=== PATIENT | female | born 1980 | race Caucasian/White ===

== ENCOUNTER → 2018-04-02 10:40 | Outpatient (CLI) | payer OTHER, SELFPAY ==
[2018-04-07 10:27] LABS: HPV APTIMA, High Risk Negative (Negative)
== END ==
PROVIDERS: Family Provider Family Medicine; PCP Family Medicine; Visit Provider Nurse Practitioner Women's Health
DX: Z12.4 Encounter for screening for malignant neoplasm of cervix (principal)
CPT/HCPCS: 88175; G0145

== ENCOUNTER → 2018-05-20 13:49 | Outpatient (CLI) | payer OTHER, SELFPAY | LOC: US 13:51 | PROVIDERS: Visit Provider Nurse Practitioner Women's Health | DX: N92.0 Excessive and frequent menstruation with regular cycle (principal); R10.2 Pelvic and perineal pain | CPT/HCPCS: 76830; 76856; 93976 ==

== ENCOUNTER 2018-09-17 09:40 | Day surgery (SDC) | payer OTHER, SELFPAY ==
[2018-09-07 10:27] VITALS: BMI 48.0
[2018-09-14 10:23] LABS: Hematocrit 39.6 % (37-47); Hemoglobin 13.4 g/dl (12.0-15.0); Mean Corp Hgb Conc 33.8 g/gl (32-36); Mean Corpuscular Hgb 30.4 pg (27.0-32.0); Mean Corpuscular Volume 89.8 fL (81-99); Mean Platelet Vol. 9.7 fl (6.2-12.0); Platelet Count 194 K/mm3 (150-450); RBC Distribution Width SD 42.1 fl (35.1-43.9); Red Blood Count 4.41 M/mm3 (4.2-5.4); White Blood Count 5.8 K/mm3 (4.4-11.0)
[2018-09-14 10:24] LABS: Scan Indicated on CBC? Y/N NO
[2018-09-17] VITALS (11 sets, daily range): BP systolic 87–126; BP diastolic 53–81; PULSE 46–80; RESP 14–20; TEMP 36.2–37; O2SAT 93–100; BMI 38.5
[2018-09-17] MEDS: Lactated Ringers 1,000 ML 40 ML IV (07:00)
[2018-09-17 10:16] LABS: Internal QC Validated? YES +Cl - CLEAR BKGD; Pregnancy, Urine Negative Negative
[2018-09-17] MEDS: Enoxaparin 40 MG/0.4 ML Syringe SC (10:44)
[2018-09-17] MEDS: Scopolamine 1mg/72hr Patch 1 PATCH TRANSDERM. (10:45)
[2018-09-17] MEDS: Phenazopyridine 95 MG Tablet 190 MG PO (10:49)
[2018-09-17] MEDS: Celecoxib 200 MG Capsule 400 MG PO (10:49)
[2018-09-17] MEDS: Acetaminophen 500 MG Tablet 1000 MG PO ×3 (10:50→22:13)
[2018-09-17] MEDS: Gabapentin 600 MG Tablet PO (10:50)
--- NOTE | 2018-09-17 11:50 | HYST_PTH ---
PATIENT: STEPHANIE FERNANDEZ LOC: [facility] – [place] U#:[id number] AGE/SX: 38/F ROOM: RE09/17/[address]: Dr. Juliana Yang MD : 1980 BED: DIS: 09/18/2018 SPEC #: [id number] RECD: 09/17/18 15:51 STATUS: FORTUNATO MANNY #: [id number] REMA: 09/17/18 11:[address]: Juliana Yang DEPT: SURGICAL PATHOLOGY RECD BY: Alex Holden ENTERED: 09/18/18 10:14 SP TYPE: HYSTERECT OTHR DR: Dr. Puma Billy DO Tissues: Uterus, NOS Procedures: Surgery Specimen Level V HEADER OPERATION: ERAS-hysterectomy, vaginal, total, bilateral salpingectomy PRE-OP DIAGNOSIS: Abnormal uterine bleeding TISSUE SUBMITTED: Uterus, cervix, bilateral fallopian tubes MICROSCOPIC DIAGNOSIS Uterus, cervix, bilateral fallopian tubes, vaginal hysterectomy and bilateral salpingectomy: Cervix - no pathologic diagnosis. Endometrium - proliferative endometrium. Myometrium - intramural and subserosal leiomyomas (largest measuring 1.5 cm in greatest dimension). Bilateral fallopian tubes - no pathologic diagnosis. SCOTT:gilmer 09/21/18 MICROSCOPIC DESCRIPTION Slides are reviewed. GROSS DESCRIPTION Received in fixative is one container labeled with the patient's name and designated uterus, cervix and bilateral fallopian tubes. The specimen consists of a hysterectomy specimen consisting of uterus with cervix and attached bilateral fallopian tubes measuring 10 x 5 x 4 cm and weighing 90 gm. The serosal surface shows small, sanches nodular masses. The ectocervical mucosa is unremarkable. The external os is oval in contour. The endocervical canal measures 3.5 cm in length and the endocervical mucosa is sanches, glistening and unremarkable. The triangular endometrial cavity measures 5 cm in length and up to 2 cm in width. The endometrium is sanches, glistening without any mass lesion and measures up to 0.2 cm in thickness. Sections through the uterine wall reveal multiple intramural and subserosal nodular masses, the largest mass measuring 1.5 cm in greatest dimension. Sections of these masses reveal sanches whorled cut surfaces without areas of hemorrhage, necrosis or cystic degeneration. The uninvolved uterine wall measures 2 cm in thickness. Also received are detached bilateral fallopian tubes (not identified as right or left) each measuring 4.5 cm in length and 0.6 cm in diameter. The fimbrial ends are identified. Sections reveal unremarkable cut surfaces. Cloth Spreader sections are submitted in ten cassettes as follows: 1 - anterior cervix, 2 - posterior cervix, 3 & 4 - anterior uterine wall, 5 & 6 - posterior uterine wall, 7 & 8 - intramural and subserosal nodular masses, 9 & 10 - bilateral fallopian tubes with each cassette containing one fallopian tube. / SCOTT:gilmer 09/18/18 TC:1 CPT: 97024
[2018-09-17] MEDS: Lidocaine/D5W 2,000 MG/250 ML IV.SOLN 2000 MG (12:07)
--- NOTE | 2018-09-17 12:32 | PCM.OPRPT ---
Problem List (1) Abnormal uterine bleeding Status: Acute Comment: plan TVH BS. ERAS protocol Report of Operation Date of Procedure: 09/17/18 Pre-Operative Diagnosis: aub Post-Operative Diagnosis: same Surgery/Procedure Performed:: tvh bs Description of Surgical Findings:: nl uterus tubes, right ovary simple cyst senior python developer: Anayeli Dennis Type of Anesthesia:: General Special Medications: none Specimen's removed: uterus tubes Drains: garcia Estimated Blood Loss (mL): 125 Fluids Replaced: crystalloid Description of Procedure: Patient was taken to the operating room and was placed under general anesthesia was prepped and draped in normal sterile fashion in the dorsal lithotomy position. Preoperative antibiotics and SCDs and Garcia catheter was placed inside the bladder. Weighted speculum was placed in the vagina and the anterior and posterior lip of the cervix was grasped with 2 Satya clamps and circumferentially injected with dilute vasopressin. A circumferential incision was made with a scalpel and the posterior cul-de-sac was entered into sharply and a longneck speculum was placed. The anterior cul-de-sac was also dissected down and entered into sharply and the uterosacral ligaments were clamped cut and suture ligated bilaterally followed by the cardinal ligaments which were Clamped cut and suture ligated bilaterally with 0 Monocryl. The uterus serially descended and progressive bites were taken bilaterally up to the level of the utero-ovarian ligament bilaterally which was clamped transected and double ligated with 0 Monocryl suture and 0 Vicryl free tie. Bilateral fallopian tubes and ovaries were well visualized and noted be within normal limits and the bilateral fallopian tubes were transected across the base with a Nasrin clamp and removed and sutured with 0 Vicryl suture. Excellent hemostasis was noted. Posterior peritoneum was reapproximated with 2-0 Vicryl and a modified Kimball stitch was placed through the posterior vaginal cuff and bilateral uterosacral ligaments across the posterior cul-de-sac skimming along to provide apical support to the vagina. The vagina was closed with [id number] 0 Vicryl pop offs including the posterior and anterior peritoneum in the reapproximation. Excellent hemostasis was noted. All instruments removed from the vagina clear urine was noted at the end of the procedure and patient was awoken and taken recovery in stable condition. Grafts/Implants Used: none - Complications none - Admit VTE Documentation VTE Present on Admission: No VTE Mechan Device Prophylaxis: SCD's
--- NOTE | 2018-09-17 12:34 | DCINST_ITS ---
Discharge Diet: No Restrictions Discharge Activity: Return to Normal Activity, May Not Drive, May Shower May resume sexual activity in: 6-8 weeks Call your doctor if your incision/area has: Continuous Slow Oozing, Sudden Increased Bleeding, Increased Pain/ Swelling, Increased Redness, Foul Smelling Discharge Call your doctor if you observe: Fever of 101 or Higher, Inability to urinate, Inability to have a bowel movement, Using more than one pad per hour Allergies/Adverse Reactions: Allergies Latex, Natural Rubber Allergy (Verified 09/17/18 10:25) Unknown Penicillins [PCN] Allergy (Verified 09/17/18 10:25) Unknown Medications to take at Discharge NK 05/18/18 Primary Care Physician: Puma Billy DO [Primary Care Provider] - Test Results: Test results from this visit will be discussed in further detail at your follow- up appointment, if applicable. Please Follow Up With: Juliana Yang MD - [phone]
[2018-09-17] MEDS: Vasopressin 20 UNITS/ML Vial (12:44)
[2018-09-17 13:16] LABS: Bedside Glucose 95 mg/dL (70-110)
[2018-09-17] MEDS: Ondansetron 4 MG/2 ML Vial IV (13:42)
[2018-09-17] MEDS: Lidocaine/D5W 2,000 MG/250 ML IV.SOLN 34.564 MG IV (13:42)
[2018-09-17] MEDS: Ketorolac 30 MG/ML Syringe IV ×2 (15:17→20:08)
[2018-09-17] MEDS: Lactated Ringers 1,000 ML 125 ML IV (20:08)
[2018-09-17] MEDS: 0.9% NaCl Peripheral Flush Adult/Peds IV (20:08)
[2018-09-17 20:32] LABS: Hemoglobin 12.1 g/dl (12.0-15.0)
[2018-09-17] MEDS: Docusate Sodium 100 MG Capsule PO (22:13)
[2018-09-18 02:09] VITALS: BP 118/68; PULSE 77; RESP 14; TEMP 37; O2SAT 96
[2018-09-18] MEDS: Ketorolac 30 MG/ML Syringe IV (02:26)
--- NOTE | 2018-09-18 02:30 | NUR.TO.PHY ---
@ 0200 assessment it was noted that the catheter had minimal urine output. The catheter was observed to be disconnected as the red tape was not in place. Bed change and catheter re attached. Will monitor.
[2018-09-18] MEDS: Acetaminophen 500 MG Tablet 1000 MG PO (05:25)
[2018-09-18] MEDS: Lactated Ringers 1,000 ML 125 ML IV (05:26)
[2018-09-18 06:21] LABS: Hematocrit 35.6 % (37-47); Hemoglobin 11.9 g/dl (12.0-15.0); Mean Corp Hgb Conc 33.4 g/gl (32-36); Mean Corpuscular Hgb 29.9 pg (27.0-32.0); Mean Corpuscular Volume 89.4 fL (81-99); Mean Platelet Vol. 9.1 fl (6.2-12.0); Platelet Count 166 K/mm3 (150-450); RBC Distribution Width CV 12.9 % (11.6-14.6); RBC Distribution Width SD 41.6 fl (35.1-43.9); Red Blood Count 3.98 M/mm3 (4.2-5.4); White Blood Count 9.9 K/mm3 (4.4-11.0)
[2018-09-18 06:25] LABS: Scan Indicated on CBC? Y/N NO
[2018-09-18 07:45] VITALS: O2SAT 95
[2018-09-18 07:54] VITALS: BP 111/64; PULSE 65; RESP 16; TEMP 36.9; O2SAT 95
--- NOTE | 2018-09-18 07:58 | PCM.PN.OB ---
Subjective: Doing well. Not ambulatory yet. Slept well. Plans home later today. Pain controlled - Physical Exam General: Alert, Oriented x3 Abdomen: Soft, Non-Distended, - Vital Signs Temp Pulse Resp BP Pulse Ox 98.5 F 65 16 111/64 95 09/18/18 07:54 09/18/18 07:54 09/18/18 07:54 09/18/18 07:54 09/18/18 07:54 Oxygen Flow Rate (L/min) 6 Oxygen Delivery Method Room Air Weight: 253 lb 8 oz Body Mass Index (BMI) 38.5 Intake and Output for Last 24 Hours 09/16/18 09/17/18 09/18/18 23:59 23:59 23:59 Intake Total 2700 / 2700 994 / 994 Output Total 655 / 655 250 / 250 Balance 2045 / 2045 744 / 744 Laboratory Tests Past 24 Hrs 09/17/18 09/17/18 09/18/18 09:50 20:20 05:52 WBC 9.9 RBC 3.98 L Hgb 12.1 11.9 L Hct 35.6 L MCV 89.4 MCH 29.9 MCHC 33.4 RDW 12.9 RDW Differential 41.6 Plt Count 166 MPV 9.1 Urine Test Negative POC Glucose 09/17/18 10:39 POC Glucose 95 Medical Necessity - Tobacco Use Smoking Status: Never smoker Assessment/Plan All Active Problems (Last Reviewed 09/07/18 @ 10:29 by Yesi Marroquin) Abnormal uterine bleeding (Acute) [facility] BS POD#1: Routine care. NO SOB, CP. Home today
--- OUTSIDE RECORDS SUMMARY | 2018-11-03 03:26 | XMS RPT_ITS ---
:1980 Author Organization [place] Support Name Relationship Address Phone ERIC FERNANDEZ Unavailable [address] [facility] [address] + [place] [address] MINDYS DINER Unavailable [address] + [place] [address] ERIC FERNANDEZ Unavailable [address] + [place] [address] MINDYS DINER Unavailable [address] + [place] [address] ERIC FERNANDEZ Unavailable [address] [facility] [address] + [place] [address] MINDYS DINER Unavailable [address] + [place] [address] ERIC FERNANDEZ Unavailable [address] [facility] [address] + [place] [address] MINDYS DINER Unavailable [address] + [place] [address] ERIC FERNANDEZ Unavailable [address] + [place] [address] MINDYS DINER Unavailable [address] + [place] [address] ERIC FERNANDEZ Unavailable [address] + [place] [address] MINDYS DINER Unavailable [address] + [place] [address] ERIC FERNANDEZ Unavailable [address] + [place] [address] MINDYS DINER Unavailable [address] + [place] [address] ERIC FERNANDEZ Unavailable [address] [facility] [address] + [place] [address] MINDYS DINER Unavailable [address] + [place] [address] ERIC FERNANDEZ Unavailable [address] [facility] [address] + [place] [address] MINDYS DINER Unavailable [address] + [place] [address] ERIC FERNANDEZ Unavailable [address] [facility] + [place] [address] MINDYS DINER Unavailable [address] + [place] [address] ICEERIC Unavailable [address] [facility] + [place] [address] MINDYS DINER Unavailable [address] + [place] [address] Care Team Providers Name Role Phone Jennifer Gray Attending Unavailable Marcanthony, Juliana Referring Unavailable Wenceslao, Puma Primary Care Unavailable Marcanthony, Juliana Consulting Unavailable Marcanthony, Juliana Attending Unavailable Wenceslao, Puma Referring Unavailable Marcanthony, Juliana Attending Unavailable [place], Jennifer Attending Unavailable Elderbrock, Roberto Carlos Referring Unavailable Elderbrock, Roberto Carlos Primary Care Unavailable Isaac, Jennifer Attending Unavailable Isaac, Jennifer Referring Unavailable Elderbrock, Roberto Carlos Primary Care Unavailable Isaac, Jennifer Attending Unavailable Elder[place], Roberto Carlos Referring Unavailable Elderbrock, Roberto Carlos Primary Care Unavailable Iasac, Jennifer Attending Unavailable Primay Care Physicia, No Primary Care Unavailable [place], Jennifer Referring Unavailable Marcanthony, Juliana Attending Unavailable Primay Care Physicia, No Referring Unavailable [place], Jennifer Attending Unavailable Primay Care Physicia, No Referring Unavailable Marcanthony, Juliana Attending Unavailable Marcanthony, Juliana Referring Unavailable Wecneslao, Puma Primary Care Unavailable Marcanthony, Juliana Attending Unavailable Primay Care Physicia, No Referring Unavailable PROBLEMS PROBLEMS DATE TYPE CONDITION / CODE ATTENDING STATUS SOURCE 10/16/2018 Unknown N93.9 - Abnormal Marcanthony, Active [place] uterine and vaginal [facility] bleeding, Hospital unspecified / Repository N93.9(ICD-10) 10/16/2018 Unknown D25.1 - Intramural Marcanthony, Active [place] leiomyoma of uterus [facility] / D25.1(ICD-10) Hospital Repository 10/16/2018 Unknown D25.2 - Subserosal Marcanthony, Active [place] leiomyoma of uterus [facility] / D25.2(ICD-10) Hospital Repository 10/16/2018 Unknown N83.201 - Marcanthony, Active [place] Unspecified ovarian [facility] cyst, right side / Hospital N83.201(ICD-10) Repository 09/18/2018 Unknown G89.18 - Other acute Marcanthony, Active [place] postprocedural pain [facility] / G89.18(ICD-10) Hospital Repository 05/18/2018 Unknown N92.0 - Excessive [place], Jennifer Active [place] and frequent Community menstruation with Hospital regular cycle / Repository N92.0(ICD-10) 05/18/2018 Unknown R10.2 - Pelvic and [place], Jennifer Active [place] perineal pain / Community R10.2(ICD-10) Hospital Repository 04/02/2018 Unknown Z12.4 - Encounter IsaacJennifer bernabe Active [place] for screening for [facility] malignant neoplasm Hospital of cervix / Repository Z12.4(ICD-10) 04/02/2018 Unknown Z01.419 - Encounter Buena VistaJennifer bernabe Active [place] for gynecological [facility] examination Hospital (general) (routine) Repository without abnormal findings / Z01.419(ICD-10) 04/02/2018 Unknown Z12.31 - Encounter Jennifer Gray Active [place] for screening [facility] mammogram for Hospital malignant neoplasm Repository of breast / Z12.31(ICD-10) PROCEDURES PROCEDURES No Procedure Records FoundRESULTS RESULTS [employer]SEMBLER OFFICE VISIT Observed: 10/12/2018 Status: F Source: CARLOS REPORT 1:38 PM [facility] REPOSITORY [facility] [address] [place] [address]. [address] [place] [address] OFFICE VISIT Date of Service: 04/02/18 MR#: [id number] Acct: [id number] Name: REBECCASTEPHANIE Rep #: [id number] : 1980 Provider: AYLEEN Gray Age/Sex: 38/F [place] [facility] Status: Signed with Addenda ADDENDUM by AYLEEN Gray on 10/12/18 at 1338 Addendum entered and electronically signed by SENDY Bang 10/12/18 13:38: Rectal exam was deferred. No masses palpated Assessment AND Plan Problems 1. Encounter for gynecological examination without abnormal finding Z01.419 2. Encounter for screening mammogram for malignant neoplasm of breast Z12.31 3. Pap smear for cervical cancer screening Z12.4 Plan - SENDY Bang Completed breast and pelvic exam Reviewed diet and exercise Pap thin prep pap with HPV Mammogram ordered Contraception none RTO 1 year, prn with problems Jennifer Gray GRAIN FARMWORKER Orders Orders: 10/12/18 1338 <Electronically signed by Jennifer KABA> Date Jennifer Gray cc: * Signed Intake Vital Signs04/02/18 Height 5 ft 8 in 04/02/18 Weight: 249 lb 04/02/18 Body Mass Index (BMI) 37.8 04/02/18 Blood Pressure 126/70 Intake Visit Reasons: [facility] annual Accompanied by: self Is patient in pain?: No Allergies Latex, Natural Rubber Allergy (Verified 04/02/18 10:22) Unknown Penicillins [PCN] Allergy (Verified 04/02/18 10:22) Unknown Is last menstrual period known: Yes Last Menstral Period: 03/16/18 Post menopausal: No Patient : No : No Nurse's Note: Patient here for annual exam. Previous patient of at [facility]. 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 infertility, declined evaluation Female Reproductive History Last Menstral Period: 03/16/18 Cycle Length: 21-35 Bleeding Duration: 5 Questions: Metorrhagia: No, Sexually active: Yes, Dyspareunia: No, PCB: No ROS Const Constitutional: Denies fatigue, weight gain or weight loss Cardio Card: Denies chest pain Resp Resp: Denies cough or shortness of breath with activity GI GI: Denies abdominal pain, constipation, change in stools, vomiting or bloating : Reports as per HPI; denies urinary frequency, pelvic pain, urinary urgency, vaginal discharge, vaginal itching, urinary incontinence or difficulty urinating Exam Const General: cooperative, healthy appearing, no acute distress, well developed Orientation: alert, oriented to person, oriented to place HENND Head: normal to inspection Neck Neck: normal visual inspection Thyroid: thyroid normal Lymphatic: no lymphadenopathy noted Chest Breast inspection: normal inspection of the breasts, normal inspection of the axillae Breast palpation: normal palpation of the breasts, normal palpation of the axillae, no axillary lymphadenopathy Resp Effort AND Inspection: normal respiratory effort GI Palpation: soft, nontender, no masses Rectal Exam: mass, deferred External Female Exam: normal external appearance, normal appearance of the urethra Urethra: normal appearance of the urethra, normal palpation Speculum Exam - Vagina: normal appearance of the vagina, normal vaginal discharge Speculum Exam - Cervix: normal appearance of the cervix, other (pap collected) Bimanual Exam- Vagina AND Uterus: normal bimanual exam, uterine size normal, uterine shape normal, uterus non-tender Bimanual Exam- Adnexa, other: normal adnexae, no adnexal masses, adnexae non-tender, pelvic support normal Pelvic Support: normal Neuro General: alert, oriented x3 Psych Affect: normal affect Assessment AND Plan Problems 1. Encounter for gynecological examination without abnormal finding Z01.419 2. Encounter for screening mammogram for malignant neoplasm of breast Z12.31 3. Pap smear for cervical cancer screening Z12.4 Plan Completed breast and pelvic exam Reviewed diet and exercise Pap thin prep pap with HPV Mammogram ordered Contraception none RTO 1 year, prn with problems Jennifer Gray GRAIN FARMWORKER Orders Orders: Coding Level of Care Code Off vis,new,prev 40-64yrs Diagnoses Encounter for gynecological examination without abnormal finding Z01.419 Gynecological examination findings: abnormal findings ABSENT Encounter for screening mammogram for malignant neoplasm of breast Z12.31 Pap smear for cervical cancer screening Z12.4 04/02/18 1051 <Electronically signed by Jennifer KABA> Date Jennifer ANGELESC Cosigner Signature: Date (if applicable) CC: [employer]BINE ASSEMBLER OFFICE VISIT Observed: 10/02/2018 Status: F Source: [place] REPORT 1:28 PM [facility] REPOSITORY [facility] [address] [place] [address]. [address] [place] [address] OFFICE VISIT Date of Service: 10/02/18 MR#: [id number] Acct: [id number] Name: STEPHANIE FERNANDEZ Rep #: [id number] : 1980 Provider: Juliana Yang MD Age/Sex: 38/F Location[place] [facility] [place] Status: Signed Intake Vital Signs10/02/18 Body Mass Index (BMI) 38.5 10/02/18 Weight: 255 lb 4 oz Intake Visit Reasons: 2 WEEK POST OP Chief Complaint: 2 wk post op hyst. Accompanied by: Self Is patient in pain?: No Allergies Latex, Natural Rubber Allergy (Verified 10/02/18 13:00) Unknown Penicillins [PCN] Allergy (Verified 10/02/18 13:00) Unknown Medications Naproxen [Naprosyn] 500 mg PO BID PRN PRN #60 tab 09/18/18 [Rx Confirmed 10/02/18] PFSH Medical History H/O: hysterectomy (Acute) No significant medical problems (Acute) Surgical History Hx of cholecystectomy (Inactive 2017) Social History adopted: No household members: spouse housing: house number of children: 0 current occupational status: employed current occupation: [employer]- [employer] pets and 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: Yes 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 Smoking Status: Never smoker second hand exposure: No alcohol intake: current alcohol intake frequency: holidays/special occasions only substance use type: does not use what type of physical activity do you participate in: walking seatbelt use: always do you feel safe at home: Yes HPI 2 WEEK POST OP: Details: STEPHANIE FERNANDEZ is a 38 year old who presents for postop visit Pregancy History 0 Elective abortions Hx Para Spontaneous abortions ROS Const Constitutional: Reports system reviewed and no additional complaints, except as docu GI GI: Denies abdominal pain, nausea, vomiting or cramping : Denies urinary frequency, vaginal dryness, vaginal discharge, urinary urgency, urinary incontinence, vaginal odor or pelvic pain Exam Const General: cooperative, healthy appearing, comfortable, no acute distress GI Inspection: normal to inspection Palpation: soft, nontender Assessment AND Plan Problems 1. Abnormal uterine bleeding N93.9 plan TVH BS. ERAS protocol Plan s/p tvh doing well Coding Level of Care Code No Charge Diagnoses Abnormal uterine bleeding N93.9 10/02/18 1328 <Electronically signed by Juliana Yang MD> Date Juliana Yang MD Cosigner Signature: Date (if applicable) CC: CBC-COMPLETE BLOOD CNT Collected: 09/18/2018 Status: F Source: CARLOS NO DIFF 5:52 AM [facility] REPOSITORY TYPE CODE TESTS RESULT OUT OF RANGE REFERENCE UNITS LAB L100.1000 4.4-11.0 K/mm3 Normal WBC 9.9 LAB L100.1200 4.2-5.4 M/mm3 Low RBC 3.98 LAB L100.1300 12.0-15.0 g/dl Low HGB 11.9 LAB L100.1400 37-47 % Low HCT 35.6 LAB L100.1500 81-99 fL Normal MCV 89.4 LAB L100.1600 27.0-32.0 pg Normal MCH 29.9 LAB L100.1700 32-36 g/gl Normal MCHC 33.4 LAB L100.1810 11.6-14.6 % Normal RDW CV 12.9 LAB L100.1820 35.1-43.9 fl Normal RDW SD 41.6 LAB L100.1900 150-450 K/mm3 Normal PLT 166 LAB L100.2000 6.2-12.0 fl Normal MPV 9.1 Performed By: #### L100.0500 #### [facility] [address] [place], [address] HEMOGLOBIN Collected: 09/17/2018 Status: F Source: [place] 8:20 PM [facility] REPOSITORY Order Comment: PATIENT WAS STILL IN SURGERY WHEN WENT TO DRAW. NURSE WAS TO CALL AND LET KNOW WHEN SHE RETURNED TO FLOOR. TYPE CODE TESTS RESULT OUT OF RANGE REFERENCE UNITS LAB L100.1300 12.0-15.0 g/dl Normal HGB 12.1 Performed By: #### L100.1300 #### [facility] [address] [place], [address] OPERATIVE REPORT Observed: 09/17/2018 Status: F Source: [place] 1:45 PM [facility] REPOSITORY [facility] Medical Records Department [address] [place] [address] Operative Report 09/17/18 1232 MR#: [id number] Acct: [id number] Name: STEPHANIE FERNANDEZ Rep #: [id number] : 1980 38 From: Juliana Yang MD PCP: Puam Billy MD Status: REG [facility] [place] [facility] List (1) Abnormal uterine bleeding Status: Acute Comment: plan TVH BS. ERAS protocol Report of Operation Date of Procedure: 09/17/18 Pre-Operative Diagnosis: aub Post-Operative Diagnosis: same Surgery/Procedure Performed:: tvh bs Description of Surgical Findings:: nl uterus tubes, right ovary simple cyst gluing crew leader: Anayeli Dennis Type of Anesthesia:: General Special Medications: none Specimen's removed: uterus tubes Drains: garcia Estimated Blood Loss (mL): 125 Fluids Replaced: crystalloid Description of Procedure: Patient was taken to the operating room and was placed under general anesthesia was prepped and draped in normal sterile fashion in the dorsal lithotomy position. Preoperative antibiotics and SCDs and Garcia catheter was placed inside the bladder. Weighted speculum was placed in the vagina and the anterior and posterior lip of the cervix was grasped with 2 Satya clamps and circumferentially injected with dilute vasopressin. A circumferential incision was made with a scalpel and the posterior cul-de-sac was entered into sharply and a longneck speculum was placed. The anterior cul-de-sac was also dissected down and entered into sharply and the uterosacral ligaments were clamped cut and suture ligated bilaterally followed by the cardinal ligaments which were Clamped cut and suture ligated bilaterally with 0 Monocryl. The uterus serially descended and progressive bites were taken bilaterally up to the level of the utero-ovarian ligament bilaterally which was clamped transected and double ligated with 0 Monocryl suture and 0 Vicryl free tie. Bilateral fallopian tubes and ovaries were well visualized and noted be within normal limits and the bilateral fallopian tubes were transected across the base with a Nasrin clamp and removed and sutured with 0 Vicryl suture. Excellent hemostasis was noted. Posterior peritoneum was reapproximated with 2-0 Vicryl and a modified Kimball stitch was placed through the posterior vaginal cuff and bilateral uterosacral ligaments across the posterior cul-de-sac skimming along to provide apical support to the vagina. The vagina was closed with [id number] 0 Vicryl pop offs including the posterior and anterior peritoneum in the reapproximation. Excellent hemostasis was noted. All instruments removed from the vagina clear urine was noted at the end of the procedure and patient was awoken and taken recovery in stable condition. Grafts/Implants Used: none - Complications none - Admit VTE Documentation VTE Present on Admission: No VTE Mechan Device Prophylaxis: SCD's 09/17/18 4956 <Electronically signed by Juliana Yang MD> Date Juliana Yang MD CC: Puma Billy MD; Juliana Yang MD Signed DISCHARGE INSTRUCTION Observed: 09/17/2018 Status: F Source: CARLOS 12:34 PM [facility] REPOSITORY [facility] Medical Records Department [address] [place] [address] Instructions for Home/Discharge Instructions 09/17/18 1234 MR#: [id number] Acct: [id number] Name: STEPHANIE FERNANDEZ Rep #: [id number] : 1980 38 From: Juliana Yang MD PCP: Puma Billy MD Status: REG [facility] [place] Discharge Diet: No Restrictions Discharge Activity: Return to Normal Activity, May Not Drive, May Shower May resume sexual activity in: 6-8 weeks Call your doctor if your incision/area has: Continuous Slow Oozing, Sudden Increased Bleeding, Increased Pain/ Swelling, Increased Redness, Foul Smelling Discharge Call your doctor if you observe: Fever of 101 or Higher, Inability to urinate, Inability to have a bowel movement, Using more than one pad per hour Allergies/Adverse Reactions: Allergies Latex, Natural Rubber Allergy (Verified 09/17/18 10:25) Unknown Penicillins [PCN] Allergy (Verified 09/17/18 10:25) Unknown Medications to take at Discharge NK 05/18/18 Primary Care Physician: Puma Billy DO [Primary Care Provider] - Test Results: Test results from this visit will be discussed in further detail at your follow-up appointment, if applicable. Please Follow Up With: Juliana Yang MD - [phone] 09/17/18 1234 <Electronically signed by Juliana Yang MD> Date Juliana Yang MD CC: Puma Billy MD HYSTERECTOMY SPECIMEN Observed: 09/17/2018 Status: F Source: CARLOS 11:50 AM [facility] REPOSITORY Patient: STEPHANIE FERNANDEZ : 1980 (38/F) Acct Num: [id number] Phys: Trey POWELL,Juliana Unit Num: [id number] Loc: [facility] Specimen: [id number] Received: 09/17/18 5560 Spec Type: HYSTERECT TISSUES 1 TISSUES: Uterus, NOS GROSS DESCRIPTION Received in fixative is one container labeled with the patient's name and designated uterus, cervix and bilateral fallopian tubes. The specimen consists of a hysterectomy specimen consisting of uterus with cervix and attached bilateral fallopian tubes measuring 10 x 5 x 4 cm and weighing 90 gm. The serosal surface shows small, sanches nodular masses. The ectocervical mucosa is unremarkable. The external os is oval in contour. The endocervical canal measures 3.5 cm in length and the endocervical mucosa is sanches, glistening and unremarkable. The triangular endometrial cavity measures 5 cm in length and up to 2 cm in width. The endometrium is sanches, glistening without any mass lesion and measures up to 0.2 cm in thickness. Sections through the uterine wall reveal multiple intramural and subserosal nodular masses, the largest mass measuring 1.5 cm in greatest dimension. Sections of these masses reveal sanches whorled cut surfaces without areas of hemorrhage, necrosis or cystic degeneration. The uninvolved uterine wall measures 2 cm in thickness. Also received are detached bilateral fallopian tubes (not identified as right or left ) each measuring 4.5 cm in length and 0.6 cm in diameter. The fimbrial ends are identified. Sections reveal unremarkable cut surfaces. Tube Knitter sections are submitted in ten cassettes as follows: 1 - anterior cervix, 2 - posterior cervix, 3 AND 4 - anterior uterine wall, 5 AND 6 - posterior uterine wall, 7 AND 8 - intramural and subserosal nodular masses, 9 AND 10 - bilateral fallopian tubes with each cassette containing one fallopian tube. / Mike 09/18/18 TC:1 CPT: 87439 HEADER OPERATION: ERAS-hysterectomy, vaginal, total, bilateral salpingectomy PRE-OP DIAGNOSIS: Abnormal uterine bleeding TISSUE SUBMITTED: Uterus, cervix, bilateral fallopian tubes MICROSCOPIC DESCRIPTION Slides are reviewed. MICROSCOPIC DIAGNOSIS Uterus, cervix, bilateral fallopian tubes, vaginal hysterectomy and bilateral salpingectomy: Cervix - no pathologic diagnosis. Endometrium - proliferative endometrium. Myometrium - intramural and subserosal leiomyomas (largest measuring 1.5 cm in greatest dimension). Bilateral fallopian tubes - no pathologic diagnosis. Mike 09/21/18 Signed Rubin Best MD 09/21/18 <signature on file> Performed By: #### PHYST #### [facility] [address] [place], [place], [address] BEDSIDE GLUCOSE Collected: 09/17/2018 Status: F Source: [place] 10:39 AM [facility] REPOSITORY TYPE CODE TESTS RESULT OUT OF RANGE REFERENCE UNITS LAB L501.080 70-110 mg/dL Normal BEDSIDE GLU 95 Result Comment: MANAGEMENT OF PATIENT CARE PER NURSING PROTOCOL Performed By: #### L501.080 #### [facility] Point of Care [address] [facility] [place] [address] ,URINE Collected: 09/17/2018 Status: F Source: [place] 9:50 AM [facility] REPOSITORY Order Comment: Reason for Laboratory Test PRRE OP TYPE CODE TESTS RESULT OUT OF REFERENCE UNITS RANGE LAB L400.8000 Negative Normal HCGUQUAL Negative Result Comment: Very dilute urine specimens, as indicated by a low specific gravity, may not contain veterans service representative levels of hCG. If is still suspected, a first morning urine specimen should be collected 48 hours later and tested. Performed By: #### L400.7600 #### [facility] [address] [facility] [place], [place], [address] CBC-COMPLETE BLOOD CNT Collected: 09/14/2018 Status: F Source: CARLOS NO DIFF 8:47 AM [facility] REPOSITORY TYPE CODE TESTS RESULT OUT OF RANGE REFERENCE UNITS LAB L100.1000 4.4-11.0 K/mm3 Normal WBC 5.8 LAB L100.1200 4.2-5.4 M/mm3 Normal RBC 4.41 LAB L100.1300 12.0-15.0 g/dl Normal HGB 13.4 LAB L100.1400 37-47 % Normal HCT 39.6 LAB L100.1500 81-99 fL Normal MCV 89.8 LAB L100.1600 27.0-32.0 pg Normal MCH 30.4 LAB L100.1700 32-36 g/gl Normal MCHC 33.8 LAB L100.1810 11.6-14.6 % Normal RDW CV 13.0 LAB L100.1820 35.1-43.9 fl Normal RDW SD 42.1 LAB L100.1900 150-450 K/mm3 Normal PLT 194 LAB L100.2000 6.2-12.0 fl Normal MPV 9.7 Performed By: #### L100.0500 #### [facility] [address] [place], [address] TYPE AND SCREEN Collected: 09/14/2018 Status: F Source: CARLOS 8:47 AM [facility] REPOSITORY Order Comment: Surgery Date: 09/17/18 Date of Last Transfusion (if within last 3 months) N Hx of Preganancy in last 3 Months No Ever experience any problems with transfusion(s)? N Hx of Transfusion in last 3 Months N Reason for Type AND Screen/Red Cells: SURGERY Time: 0600 SURGICAL PROCEDURE: TOTAL HYSTER TYPE CODE TESTS RESULT OUT OF RANGE REFERENCE UNITS LAB B10.0800 A Normal BLOOD TYPE GEL POSITIVE LAB B100.4000 Normal Antibody NEGATIVE Screen Performed By: #### B101.7475 #### [facility] [address] 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 Required: No Is patient in pain?: No Allergies Latex, Natural Rubber Allergy (Verified 09/07/18 10:28) Unknown Penicillins [PCN] Allergy (Verified 09/07/18 10:28) Unknown Medications NK 05/18/18 [History Confirmed 09/07/18] Is last menstrual period known: Yes Last Menstral Period: 09/28/18 Post menopausal: No Patient : No : No PFSH Medical History No significant medical problems (Acute) Surgical History Hx of cholecystectomy (Inactive 2017) Social History adopted: No household members: spouse housing: house number of children: 0 current occupational status: employed current occupation: [employer] pets and 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 she has a history of AUB failed medical management. she and her do not desire any children and she is wanting definitive therapy. she was unable to have an emb due to cervical stenosis. Female Reproductive History Last Menstral Period: 09/28/18 Cycle Length: 21-35 Bleeding Duration: 7 associated symptoms: dysmenorrhea Pregancy History 0 Elective abortions Hx Para Spontaneous abortions ROS Const Constitutional: Denies poor appetite, headache(s), fever(s), increased appetite, weight gain, weight loss or fatigue Cardio Card: Denies chest pain Resp Resp: Denies dyspnea or cough GI GI: Reports as per HPI; denies vomiting, nausea, abdominal pain or constipation : Reports as per HPI; denies urinary urgency, vaginal discharge, urinary frequency, vaginal itching, vaginal odor, vaginal dryness, urinary incontinence, urinary hesitancy, difficulty urinating, painful urination or nipple discharge Skin Skin/Breast: Denies breast lump, breast pain, breast skin changes, nipple discharge or change in hair Exam Const General: cooperative, healthy appearing, comfortable, no acute distress, well developed Nutritional Appearance: average body habitus Orientation: alert HENND Head: normal to inspection, normocephalic Neck Neck: normal visual inspection, trachea midline Thyroid: thyroid normal Resp Effort AND Inspection: normal respiratory effort GI Inspection: normal to inspection, non-distended Palpation: soft, no hepatosplenomegaly General: bladder normal to palpation External Female Exam: normal external appearance, normal appearance of the urethra Urethra: normal appearance of the urethra, normal palpation, no discharge Speculum Exam - Vagina: normal appearance of the vagina, normal vaginal discharge Speculum Exam - Cervix: normal appearance of the cervix, nontender Bimanual Exam- Vagina AND Uterus: bladder normal to palpation, No cervical tenderness, normal bimanual exam, uterine size normal, uterine shape normal, uterine mobility normal, uterine consistency normal, normal cervical palpation, uterus non-tender Bimanual Exam- Adnexa, other: normal adnexae, adnexae mobile, no adnexal masses, pelvic support normal Pelvic Support: normal Skin General: no rashes or lesions noted Assessment AND Plan Problems 1. Abnormal uterine bleeding N93.9 plan TVH BS. ERAS protocol Plan discussed surgical risks including risks of anesthesia, infection, bleeding, injury to bowel, bladder or blood vessels, and patient wishes to proceed with surgery. Coding Level of Care Code Off vis,est,level 4 Diagnoses Abnormal uterine bleeding N93.9 09/07/18 1105 <Electronically signed by Juliana Yang MD> Date Juliana Yang MD Cosigner Signature: Date (if applicable) CC: [employer] TURBINE ASSEMBLER OFFICE VISIT Observed: 07/20/2018 Status: F Source: CARL[facility] REPORT 10:20 AM [facility] [address] [place] [address]. 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 declined test. Pt. 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 Unable to pass small wire dilator or pipelle. Procedure deferred. Results [facility] Office , Urine Negative Last Edit by Yesi Marroquin on 07/20/18 10:12 Assessment AND Plan 1. Encounter for procedure 2. Abnormal uterine bleeding N93.9 plan TVH BS. needs EMB prior Plan Deferred EMB-unable to pass through cervical os Keep appt with Dr. Yang to discuss management of heavy and prolonged menses. Plan Detail Other Orders Orders: Coding Level of Care Code Off vis,est,level 3 Diagnoses Encounter for procedure Abnormal uterine bleeding N93.9 07/20/18 1020 <Electronically signed by Jennifer KABA> Date Jennifer KABA Cosigner Signature: Date (if applicable) CC: [employer] TURBINE ASSEMBLER OFFICE VISIT Observed: 07/11/2018 Status: F Source: CARLOS REPORT 4:56 AM [facility] [address] [place] [address] OFFICE VISIT Date of Service: 07/06/18 MR#: [id number] Acct: [id number] Name: STEPHANIE FERNANDEZ Rep #: [id number] : 1980 Provider: Juliana Yang MD Age/Sex: 38/F Location[place] [facility] [place] Status: Signed Intake Vital Signs07/06/18 Height 5 ft 8 in 07/06/18 Weight: 256 lb 6 oz 07/06/18 Body Mass Index (BMI) 38.9 07/06/18 Blood Pressure 118/78 Intake Visit Reasons: Discuss surgical options Associate Professor Of Physics Required: No Is patient in pain?: No Allergies Latex, Natural Rubber Allergy (Verified 07/06/18 12:09) Unknown Penicillins [PCN] Allergy (Verified 07/06/18 12:09) Unknown Medications NK 05/18/18 [History Confirmed 07/06/18] Is last menstrual period known: Yes Last Menstral Period: 06/30/18 Post menopausal: No Patient : No : No PFSH Medical History No significant medical problems (Acute) Surgical History Hx of cholecystectomy (Inactive 2016) Social History adopted: No household members: spouse housing: house number of children: 0 current occupational status: employed current occupation: [employer]- [employer] 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 she has tried hormones in the past and they have not controlled her bleeding and she has significant side effects. she declines an IUD. she has mild dysmenorrhea with the bleeding. she hasnt ahd an EMB Female Reproductive History Last Menstral Period: 06/30/18 Pregancy History 0 Elective abortions Hx Para Spontaneous abortions ROS Const Constitutional: Denies poor appetite, headache(s), fever(s), increased appetite, weight gain, weight loss or fatigue Cardio Card: Denies chest pain Resp Resp: Denies dyspnea or cough GI GI: Reports as per HPI; denies vomiting, nausea, abdominal pain or constipation : Reports as per HPI; denies urinary urgency, vaginal discharge, urinary frequency, vaginal itching, vaginal odor, vaginal dryness, urinary incontinence, urinary hesitancy, difficulty urinating, painful urination or nipple discharge Skin Skin/Breast: Denies breast lump, breast pain, breast skin changes, nipple discharge or change in hair Exam Const General: cooperative, healthy appearing, comfortable, no acute distress, well developed Nutritional Appearance: average body habitus Orientation: alert HENND Head: normal to inspection, normocephalic Neck Neck: normal visual inspection, trachea midline Thyroid: thyroid normal Resp Effort AND Inspection: normal respiratory effort GI Inspection: normal to inspection, non-distended Palpation: soft, no hepatosplenomegaly Skin General: no rashes or lesions noted Assessment AND Plan Problems 1. Abnormal uterine bleeding N93.9 plan TVH BS. needs EMB prior Plan discussed options of d and c hysteroscopy ablation vs lysteda vs mirena vs hysterectomy. patient to discuss with and decide. Coding Level of Care Code Off vis,est,level 4 Diagnoses Abnormal uterine bleeding N93.9 07/11/18 0456 <Electronically signed by Juliana Yang MD> Date Juliana Yang MD Cosigner Signature: Date (if applicable) CC: TRANSVAGINAL Observed: 05/20/2018 Status: F Source: CARLOS NON- 1:51 PM [facility] REPOSITORY [facility] Imaging Services [address] [place] [address] Transvaginal Non- MR#: [id number] Acct: [id number] Name: STEPHANIE FERNANDEZ Rep #: [id number] : 1980 F 38 From: Homero Giles DO PCP: Care Physician, No Primary Status: REG CLI Study: Transvaginal Non- Date of Exam: 05/20/18 Exam# [id number] Ordering Dr: Jennifer Gray CHEMICAL SPRAYER-Fransico STUDY: ULTRASOUND OF THE FEMALE PELVIS - COMPLETE REASON FOR EXAM: Female, 38 years old. Excessive and frequent menstruation LMP: 05/05/2018 TECHNIQUE: Transabdominal and Transvaginal TECHNICAL QUALITY: Adequate. COMPARISON: None. FINDINGS: The uterus is anteverted and is in a midline position. The uterus measures 9.6 x 5.7 x 3.8 cm. There is a Nabothian cyst of the cervix. The endometrium measures 11 mm in thickness, and is hyperechoic. There is no demonstrated endometrial mass. There is a 1 x 1.1 x 0.8 cm slightly hyperechoic focus within the anterior uterine fundus. I.U.D. - The patient does not have an I.U.D. The right ovary is visualized. The right ovary measures 3.6 x 3.5 x 2.7 cm. There is no right ovarian cyst or ovarian mass. There is no visualized right adnexal mass or complex lesion. There is normal arterial and normal venous vascularity. The left ovary is visualized. The left ovary measures 3.4 x 3 x 2.1 cm. There is no left ovarian cyst or ovarian mass. There is no visualized left adnexal mass or complex lesion. There is normal arterial and normal venous vascularity. There is no fluid in the cul-de-sac. The pre void volume of the bladder was 146 ml. Polycystic ovary disease: No. US/Transvaginal Non- IMPRESSION: Small nodular slightly hyperechoic focus within the uterus that represent a small fibroid. Normal ovaries. Electronically Signed: Homero Giles DO at 14:40 EDT Tel , Service support , CC: AYLEEN Gray; No Primary Care Physician Form Maker: Signed PELVIC (NON ) Observed: 05/20/2018 Status: F Source: [place] 1:51 PM [facility] REPOSITORY [facility] Imaging Services [address] [place] [address] Pelvic (Non ) MR#: [id number] Acct: [id number] Name: STEPHANIE FERNANDEZ Rep #: [id number] : 1980 F 38 From: Homero Giles DO PCP: Care Physician, No Primary Status: REG CLI Study: Pelvic (Non ) Date of Exam: 05/20/18 Exam# [id number] Ordering Dr: Jennifer Gray CHEMICAL SPRAYER-C STUDY: ULTRASOUND OF THE FEMALE PELVIS - COMPLETE REASON FOR EXAM: Female, 38 years old. Excessive and frequent menstruation LMP: 05/05/2018 TECHNIQUE: Transabdominal and Transvaginal TECHNICAL QUALITY: Adequate. COMPARISON: None. FINDINGS: The uterus is anteverted and is in a midline position. The uterus measures 9.6 x 5.7 x 3.8 cm. There is a Nabothian cyst of the cervix. The endometrium measures 11 mm in thickness, and is hyperechoic. There is no demonstrated endometrial mass. There is a 1 x 1.1 x 0.8 cm slightly hyperechoic focus within the anterior uterine fundus. I.U.D. - The patient does not have an I.U.D. The right ovary is visualized. The right ovary measures 3.6 x 3.5 x 2.7 cm. There is no right ovarian cyst or ovarian mass. There is no visualized right adnexal mass or complex lesion. There is normal arterial and normal venous vascularity. The left ovary is visualized. The left ovary measures 3.4 x 3 x 2.1 cm. There is no left ovarian cyst or ovarian mass. There is no visualized left adnexal mass or complex lesion. There is normal arterial and normal venous vascularity. There is no fluid in the cul-de-sac. The pre void volume of the bladder was 146 ml. Polycystic ovary disease: No. US/Pelvic (Non ) IMPRESSION: Small nodular slightly hyperechoic focus within the uterus that represent a small fibroid. Normal ovaries. Electronically Signed: Homero Giles DO at 14:40 EDT Tel , Service support , CC: AYLENE Gray; No Primary Care Physician Form Maker: Signed [employer] TURBINE ASSEMBLER OFFICE VISIT Observed: 05/18/2018 Status: F Source: CARLOS REPORT 11:44 AM [facility] [address] [place] [address] OFFICE VISIT Date of Service: 05/18/18 MR#: [id number] Acct: [id number] Name: STEPHANIE FERNANDEZ Rep #: [id number] : 1980 Provider: AYLEEN Gray Age/Sex: 38/F [place] [facility] [place] Status: Signed Intake Vital Signs08/13/18 Height 5 ft 8 in 05/18/18 Weight: 253 lb 2 oz 05/18/18 Body Mass Index (BMI) 38.5 05/18/18 Blood Pressure 112/86 Intake Visit Reasons: Discuss surgical options Associate Professor Of Physics Required: No Allergies Latex, Natural Rubber Allergy (Verified 05/18/18 11:16) Unknown Penicillins [PCN] Allergy (Verified 05/18/18 11:16) Unknown Medications NK [NK] 05/18/18 [History Confirmed 05/18/18] Is last menstrual period known: Yes Last Menstral Period: 05/05/18 Post menopausal: No Patient : No : No PFSH Medical History No significant medical problems (Acute) Surgical History Hx of cholecystectomy (Inactive 2016) Social History adopted: No household members: spouse housing: house number of children: 0 current occupational status: employed current occupation: [employer]- [employer] 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 She can not use oral contraceptives as they increase her headaches. Female Reproductive History Last Menstral Period: 05/05/18 Questions: Metorrhagia: Yes, Sexually active: Yes, Dyspareunia: No, PCB: No Pregancy History 0 Elective abortions Hx Para Spontaneous abortions ROS Const Constitutional: Reports system reviewed and no additional complaints, except as docu GI GI: Denies abdominal pain or change in bowel habits Exam Const General: no acute distress Nutritional Appearance: well nourished Orientation: oriented x3 Assessment AND Plan Problems 1. Pelvic pain in female R10.2 2. Menorrhagia with regular cycle N92.0 3. General counselling and advice on contraception Z30.09 Plan Discussed options for management of painful and heavy menses and contraception. She declines IUD Will proceed with US and then arrange for consult with Dr. Yang 15 min FTF counseling with patient. Orders Orders: Coding Level of Care Code Off vis,est,level 3 Diagnoses Pelvic pain in female R10.2 Menorrhagia with regular cycle N92.0 Menorrahagia type: with regular cycle General counselling and advice on contraception Z30.09 05/18/18 1144 <Electronically signed by Jennifer KABA> Date Jennifer KABA Cosigner Signature: Date (if applicable) CC: PAP IG HPV APTIMA Collected: 04/02/2018 Status: F Source: CARLOS 16/18,45 10:40 AM [facility] REPOSITORY Order Comment: CYTOLOGY INFORMATION: - CLINICAL INFORMATION: - DATE LMP/MENOPAUSE: 03/16/18 LMP - COLLECTION VIAL: Thin Prep Vial - BRAZING MACHINE OPERATOR SOURCE: CERVICAL - COLLECTION TECHNIQUE: BRUSH/SPATULA Specimen Comment: [id number] Specimen Comment: No. of containers..01 ThinPrep Vial TYPE CODE TESTS RESULT OUT OF RANGE REFERENCE UNITS LAB L7400.0800 . Normal DIAGN Comment Result Comment: NEGATIVE FOR INTRAEPITHELIAL LESION AND MALIGNANCY. LAB L7400.0900 . Normal ADEQ Comment Result Comment: Satisfactory for evaluation. Endocervical and/or squamous metaplastic cells (endocervical component) are present. LAB L7400.1400 . Normal PERFORM Comment Result Comment: Katharine Blanco, Computer System Technician (ASCP) LAB L7400.7212 . Normal TEST METHOD Comment Result Comment: This liquid based ThinPrep(R) pap test was screened with the use of an image guided system. LAB L7400.2600 . Normal . COMM LAB L7400.2700 . Normal PAPSMR Comment Result Comment: The Pap smear is a screening test designed to aid in the detection of premalignant and malignant conditions of the uterine cervix. It is not a diagnostic procedure and should not be used as the sole means of detecting cervical cancer. Both false-positive and false-negative reports do occur. LAB L7400.2760 Negative Normal HPV APTIMA, Negative HR Result Comment: This test detects fourteen high-risk HPV types (16/18/31/33/35/39/45/ 51/52/56/58/59/66/68) without differentiation. Performed at: - [facility] [id number] Car Body Mechanic: Gi Eastman MD, Phone: [phone] Performed at: = - [facility] [id number] Car Body Mechanic: Gi Eastman MD, Phone: [phone] Performed By: #### L7400.0280 #### [facility] (refer to report for specific site) refer to report for address and phone number ALLERGIES ALLERGIES DATE TYPE / CODE NAME / CODE REACTION SEVERITY SOURCE 10/02/2018 Drug Penicillins/F0 Unknown Unknown [facility] Allergy/4160 70089231([facility] [address](SNOMED M) Repository CT) 10/02/2018 Drug Latex, Natural Unknown Unknown [facility] Allergy/4160 Rubber/[id number] [place] [address](SNOMED 526(RXNORM) Repository CT) ENCOUNTERS ENCOUNTERS ADMIT/DISCHARGE ACCOUNT ADMITTING ENCOUNTER LOCATION SOURCE NUMBER CLASS 10/02/2018/ [id number] Ambulatory BMS[place] 8 5 [place] Repository 09/18/2018 [id number] Ambulatory BMSBuilding:B [place] 2 [place] Repository 09/17/2018 [id number] Ambulatory BMSBuilding:[place] 9 [facility] Repository 09/17/2018/ [id number] Ambulatory [place] 8 0 [facility] ing:SDCRoom: Repository MS306 09/07/2018/ [id number] Ambulatory BMSBuilding:B [place] 8 7 [place] Repository 07/20/2018/ [id number] Ambulatory [facility] [place] [facility] 2 [facility] 07/06/2018/ [id number] Ambulatory [facility]MS[facility] [place] 8 8 [facility] Rep[facility] 05/20/2018 [id number] Ambulatory [place] 6 [facility] ing:US Repository 05/18/2018/ [id number] Ambulatory BMS[facility] [place] 8 8 [facility] Repository 04/02/2018 [id number] Ambulatory [place] 4 [facility] ing:[facility] Repository 04/02/2018/ [id number] Ambulatory BMSBuilding:B [place] 8 8 [place] Repository PAYERS PAYERS ENCOUNTER GUARANTOR PAYER SUBSCRIBER SOURCE 10/02/2018 STEPHANIE [id number] Primary ERIC ICEDOB: [place] [address] Insurance:MEDICAL [id number] [address]Jnz: (330) Number: Repository [phone] () [id number] Date:[id number]: 10/02/2018 Secondary NOT GIVENUNK [place] Insurance:SELF PAY [facility] Number: Effective Repository Date:2018-10-02 09/18/2018 STEPHANIE Forrester [id number] Primary ERIC ICEDOB: [place] [address] Insurance:MEDICAL [id number] [address]Pns: (330) Number: Repository [phone] () [id number] Date:1585-59-58[place] [id number]: 09/18/2018 Secondary NOT GIVENUNK [place] Insurance:SELF PAY [facility] Number: Effective Repository Date:2018-09-18 09/17/2018 STEPHANIE Forrester [id number] Primary ERIC ICEDOB: [place] [address] Insurance:MEDICAL [id number] [address]Sai: (330) Number: Repository [phone] () [id number] Date:5464-44-74YQ [place] [id number]: 09/17/2018 Secondary NOT GIVENUNK [place] Insurance:SELF PAY [facility] Number: Effective Repository Date:2018-09-17 09/17/2018 STEPHANIE Forrester [id number] Primary ERIC ICEDOB: [place] [address] Insurance:MEDICAL [id number] [address]Kwg: (330) Number: Repository [phone] () [id number] Date:4965-26-35BSB[place] [id number]: 09/17/2018 Secondary NOT GIVENUNK [place] Insurance:SELF PAY [facility] Number: Effective Repository Date:2018-07-07 09/07/2018 STEPHANIE Forrester [id number] Primary ERIC ICEDOB: [place] [address] Insurance:MEDICAL [id number] [address]Mhk: (330) Number: Repository [phone] () [id number] Date:9562-73-16YY [place] [address]: 09/07/2018 Secondary NOT GIVENUNK [place] Insurance:SELF PAY [facility] Number: Effective Repository Date:2018-09-03 07/20/2018 STEPHANIE Forrester [id number] Primary ERIC ICEDOB: [place] [address] Insurance:MEDICAL [id number] [address]Gqr: (330) Number: Repository [phone] () [id number] Date:6572-22-10PJ [place] [phone]: 07/20/2018 Secondary NOT GIVENUNK [place] Insurance:SELF PAY [facility] Number: Effective Repository Date:2018-07-20 07/06/2018 STEPHANIE Forrester [id number] Primary ERIC ICEDOB: [place] [address] Insurance:MEDICAL [id number] [address]Rxd: (330) Number: Repository [phone] () [id number] Date:1557-06-28IJ [place] [phone]: 07/06/2018 Secondary NOT GIVENUNK [place] Insurance:SELF PAY [facility] Number: Effective Repository Date:2018-07-06 05/20/2018 STEPHANIE Forrester [id number] Primary ERIC ICEDOB: [place] [address] Insurance:MEDICAL [id number] [address]Yta: (330) Number: Repository [phone] () [id number] Date:5014-55-67PO [place] [phone]: 05/20/2018 Secondary NOT GIVENUNK [place] Insurance:SELF PAY [facility] Number: Effective Repository Date:2018-05-18 05/18/2018 STEPHANIE Forrester [id number] Primary ERIC ICEDOB: [place] [address] Insurance:MEDICAL [id number] [address]Sps: [phone]) Number: Repository [phone] () [id number] Date:[id number] [place] [id number]: 05/18/2018 Secondary NOT GIVENUNK [place] Insurance:SELF PAY [facility] Number: Effective Repository Date:2018-05-18 04/02/2018 STEPHANIE Forrester [id number] Primary ERIC ICEDOB: [place] [address] Insurance:MEDICAL [id number] [address]Qli: ([phone]) Number: Repository [phone] () [id number] Date:[id number] [address] [address]PO: 04/02/2018 Secondary NOT GIVENUNK [place] Insurance:SELF PAY [facility] Number: Effective Repository Date:2018-04-02 04/02/2018 STEPHANIE Forrester [id number] Primary ERIC ICEDOB: [place] Insurance:MEDICAL [id number] [facility] [address]Kaa: 330) Number: Repository [phone] HP) [id number] Date:[id number] [address] [place] [id number]: 04/02/2018 Secondary NOT GIVENUNK [place] Insurance:SELF PAY [facility] Number: Effective Repository Date:2018-04-02
== END 2018-09-18 09:54 | disposition home or self-care (01) ==
LOC: SDC 09:43 → AC 09:44 → MS3 12:17
PROVIDERS: Anesthesiology; Family Provider Family Medicine; PCP Family Medicine; Referring Provider Obstetrics & Gynecology; Visit Provider Obstetrics & Gynecology
PROC: (CPT 58260; principal; 2018-09-17 11:30)
DX: N93.9 Abnormal uterine and vaginal bleeding, unspecified (principal); D25.1 Intramural leiomyoma of uterus; D25.2 Subserosal leiomyoma of uterus; N83.201 Unspecified ovarian cyst, right side; M48.02 Spinal stenosis, cervical region
CPT/HCPCS: 58262; 36415; 81025; 82962; 85018; 85027; 86850; 86900; 88307; J7050; J7120; A4216; J2405

== ENCOUNTER 2019-03-04 10:28 | Emergency (ER) | payer OTHER, SELFPAY ==
[2018-10-30 10:09] VITALS: BMI 38.5
[2019-03-04 10:29] VITALS: BP 132/82; PULSE 73; RESP 18; TEMP 36.1; O2SAT 98; BMI 38.7
[2019-03-04 10:31] VITALS: TEMP 36.1
--- NOTE | 2019-03-04 10:38 | RAD_ITS ---
STUDY: X-RAY CHEST REASON FOR EXAM: Female, 38 years old. Chest tightness TECHNIQUE: PA and lateral views of the chest. COMPARISON: None. FINDINGS: The lungs are clear and expanded. There is no demonstrated pleural abnormality. Normal size heart. Normal mediastinum and sonal. Normal visualized pulmonary arteries. Normal visualized aortic arch and descending thoracic aorta. Normal visualized thoracic spine. Normal visualized ribs, clavicles, and shoulders. There is no demonstrated abnormality of the visualized soft tissue structures of the upper abdomen. RAD/Chest PA and Lateral IMPRESSION: Normal x-ray examination of the chest. Electronically Signed: Giorgi Orozco DO at 11:20 EDT Tel , Service support ,
--- NOTE | 2019-03-04 10:38 | EKG12_ITS ---
Test Reason : FR Blood Pressure : / mmHG Vent. Rate : 060 BPM Atrial Rate : 060 BPM P-R Int : 162 ms QRS Dur : 076 ms QT Int : 426 ms P-R-T Axes : 030 026 037 degrees QTc Int : 426 ms Normal sinus rhythm Low voltage QRS (Precordial leads) Confirmed by ARI POWELL, ADRIANA ([id number]), assistant film editor REG WHITE ([id number]) on 03/08/2019 1:13:14 PM Referred By: JOANN Confirmed By:ADRIANA CHAPMAN MD
--- NOTE | 2019-03-04 10:50 | ED.DCSUM_ITS ---
- ER Visit Summary Date of Service: 03/04/19 Chief Complaint: Intermittent chest tightness and shortness of breath History of Present Illness: The patient is a 38 F presents to the emergency department with constellation of symptoms. Patient states that she is been having intermittent problems with her right knee for some time. States she had a fall about 10 years ago. 4 years ago, the area was swelling. She went to urgent care and had an ultrasound. There is no evidence of clot. She states that it will get better and then get worse. Over the past 4 weeks, she is noticed that its been swelling again. She also states that from time to time, she will feel short of breath and have some chest tightness. It is not made worse with exertion. She denies orthopnea. She denies weight gain. She has no history of pulmonary embolus. She does not take any daily medications. She does not smoke. She states she has no pain when she tries to take a deep breath. Physical Examination: Vital signs reviewed General: Well-nourished, well-developed Head: Normocephalic, atraumatic Eyes: Pupils equal and reactive, extraocular muscles intact Neck, supple, no lymphadenopathy Heart: Regular rate and rhythm Respiratory: No distress, clear bilaterally Abdomen: Soft, nontender, nondistended, no peritoneal signs Back: Nontender Extremities: Nontender, no edema, no cords Skin: Normal color no rash Neuro: Alert and oriented, no focal or lateralizing deficits Test Results: [] Emergency Department Course and Treatment: Patient presents with intermittent chest tightness for the past month. EKG was obtained. It was sinus rhythm without acute ischemia. It was unchanged from prior. I did ultrasound both of her legs. There is no evidence of DVT. Her d-dimer is also negative. X-ray shows normal cardiac silhouette. There is no infiltrate. There is no pneumothorax. Labs are also unremarkable. Cardiac enzymes are normal. At this time, I am unclear of the acute etiology of her pain but I do not suspect a d angerous process. She has an unremarkable work-up here. She was reassured and will follow-up with her primary care for further evaluation. She was been having intermittent pain in the right knee and exam but does seem consistent with meniscus injury. She will also be given outpatient orthopedic follow-up. Treatment Plan: [] Disposition: Discharge Impression: 1. Dyspnea 2. Right meniscus injury This note was generated with the Shelf dictation software. It may contain incorrect words, spelling, and punctuation that were not noted in review of the chart prior to signing ED Disposition - Plan for ED Patient: Instructions: ED Chest Pain NonCardiac, ED Meniscal Injury Knee Poss Referrals: Puma Billy DO [Primary Care Provider] - Matti Greer DO [STAFF PHYSICIAN] -
--- NOTE | 2019-03-04 10:53 | VDLE_ITS ---
Reason For Study: Swelling RIGHT LEFT GSV is normal. GSV is normal. CFV is compressible, spontaneous, phasic, CFV is compressible, spontaneous, phasic, competent and demonstrates normal competent, and demonstrates normal augmentation. augmentation. FV is compressible, spontaneous, phasic, FV is compressible, spontaneous, phasic, competent and demonstrates normal competent and demonstrates normal augmentation. augmentation. POP V is compressible, spontaneous, phasic, POP V is compressible, spontaneous, phasic, competent and demonstrates normal competent and demonstrates normal augmentation. augmentation. T/P Trunk is compressible. T/P Trunk is compressible. PTV is compressible. PTV is compressible. RT PerV is compressible. LT PerV is compressible. Procedure Exam performed in department. A preliminary report was called and/or faxed to [facility]. Interpretation Summary No evidence for acute deep venous thrombosis bilateral lower extremities with patent and compressible bilateral great saphenous veins. Ordering Physician: Matti Gabriel Referring Physician: Puma Billy Performed By: Roxanne Dickerson RVT
[2019-03-04 10:55] LABS: Absolute Lymphocyte Count 1.61 X10^3/ul (0.83-4.51); Absolute Neutrophil Count 3.8 X10^3/uL (2.0-7.7); Basophil# 0.02 X10^3/uL; Basophil% 0.3 % (0-1); Eosinophil# 0.14 X10^3/uL; Eosinophils% 2.3 % (0-5); Hematocrit 38.3 % (37-47); Hemoglobin 13.2 g/dl (12.0-15.0); Lymphocyte # 1.61 X10^3/ul (4.0); Lymphocyte % 26.9 % (19-41); Mean Corp Hgb Conc 34.5 g/gl (32-36); Mean Corpuscular Hgb 30.3 pg (27.0-32.0); Mean Corpuscular Volume 87.8 fL (81-99); Mean Platelet Vol. 8.8 fl (6.2-12.0); Monocyte# 0.39 X10^3/uL; Monocyte% 6.5 % (0-10); Neutrophil # 3.81 X10^3/uL (2.7-7.7); Neutrophil % 63.8 % (47-70); Platelet Count 176 K/mm3 (150-450); RBC Distribution Width CV 12.9 % (11.6-14.6); RBC Distribution Width SD 41.5 fl (35.1-43.9); Red Blood Count 4.36 M/mm3 (4.2-5.4)
[2019-03-04 10:56] LABS: POSITIVE COUNT NO; POSITIVE DIFFERENTIAL NO; POSITIVE MORPHOLOGY NO
[2019-03-04] MEDS: 0.9% Normal Saline 1,000 ML 1000 ML IV (11:06)
[2019-03-04] MEDS: Ketorolac 15 MG/ML Vial IV (11:06)
[2019-03-04 11:07] LABS: D-Dimer Quantitative (DVT/PE) 0.45 FEU/ug/m (0.27-0.49)
[2019-03-04 11:21] LABS: ALB/GLOB Ratio 0.9 RATIO (0.9-2.4); AST(SGOT) 15 U/L (15-37); Alanine Aminotransfer ALT/SGPT 25 U/L (13-56); Albumin, Serum 3.4 g/dL (3.2-5.0); Alkaline Phosphatase 60 U/L (45-117); Anion Gap 8 (5-15); BUN 13 mg/dL (7-18); BUN/Creat Ratio 15.6 RATIO (10-20); Calcium,Total 8.4 mg/dL (8.5-10.1); Chloride 105 mmol/L (98-107); Creatinine, Serum 0.83 mg/dL (0.55-1.02); EST Glomerular Filtration Rate 80 mL/min (>60); Est Glom Filt Rate - Afr Amer 97 mL/min (>60); Estimated Creatinine Clearance 90.89 ml/min; Globulin 3.9 g/dL (2.2-4.2); Glucose 89 mg/dL (74-106); Potassium 3.4 mmol/L (3.5-5.1); Protein, Total 7.3 g/dL (6.4-8.2); Sodium Level 140 mmol/L (136-145)
[2019-03-04 11:55] VITALS: BP 139/84; PULSE 72; RESP 15; O2SAT 98
== END 2019-03-04 11:56 | disposition home or self-care (01) ==
PROVIDERS: Emergency Provider Emergency Medicine; Family Provider Family Medicine; PCP Family Medicine
DX: R06.02 Shortness of breath (principal); R07.89 Other chest pain; S83.8X1A Sprain of other specified parts of right knee, initial encounter; W19.XXXA Unspecified fall, initial encounter; Y93.9 Activity, unspecified; Y92.9 Unspecified place or not applicable
CPT/HCPCS: 71046; 80053; 84484; 85025; 85379; 93005; 93970; 96361; 96374; 99284; J7030; A4216

== ENCOUNTER → 2019-03-19 16:05 | Outpatient (CLI) | payer OTHER, SELFPAY ==
[2019-03-04 10:29] VITALS: BMI 38.7
--- NOTE | 2019-03-19 16:45 | MRI_ITS ---
HISTORY:RIGHT leg pain, cramping, throbbing MRI EXAMINATION OF THERight KNEE COMPARISON: None TECHNIQUE: There is minimal cortical edema that is seen at the posterior medial tibia # of images including paperwork:198 FINDINGS: Bones: There is no evidence of an acute fracture or dislocation. No significant marrow edema is seen Ligaments and tendons: Cystic changes seen with the anterior cruciate ligament. This is most marked at the tibial attachment. The posterior cruciate ligament is intact. The medial collateral ligament, iliotibial band, biceps femoris tendon, lateral collateral ligament and popliteus tendon are intact Extensor mechanism: The quadriceps tendon and patellar tendon are intact. The medial and lateral retinaculum are intact. Knee joint: There is a small joint effusion. There is a popliteal cyst as well as fluid within the semimembranosus tibial collateral ligament bursa Multiple venous varicosities are seen within the subcutaneous tissue most marked laterally. Medial compartment: There is no evidence of a meniscal tear the articular cartilage is intact Lateral compartment: No evidence of a meniscal tear. The articular cartilage is intact Patellofemoral articulation: Mild fraying of the articular cartilage at the lateral facet of the patella near the apex seen on axial image 10 series 2. Minimal edema is seen within the trochlear cartilage at the sulcus with mild fraying of the cartilage. MRI/Lower Ext Joint Only (Routine) IMPRESSION: There is minimal subcortical edema seen at the posterior medial tibia Cystic changes are seen within the anterior cruciate ligament There is a popliteal cyst as well as fluid within the semimembranosus tibial collateral ligament bursa Minimal joint effusion Fraying of the articular cartilage of the lateral facet of the patella as well as at the sulcus of the trochlea at 1815 Reported and signed by: Maureen Mejía DO Electronically Signed: Maureen Mejía DO at 18:14 EDT Tel , Service support ,
== END ==
PROVIDERS: Family Provider Family Medicine; PCP Family Medicine; Referring Provider Orthopaedic Surgery; Visit Provider Orthopaedic Surgery
DX: M25.561 Pain in right knee (principal)
CPT/HCPCS: 73721